=== PATIENT | female | born 1970 | race African-American/Black ===

== ENCOUNTER 2024-07-10 13:45 | Emergency (ER) | payer MEDICAID ==
[~2024-07-10] VITALS: Ht 160 cm; Wt 78.5 kg
[2024-07-10 14:52] VITALS: BP 187/85; RESP 16; TEMP 98.8; O2SAT 97
[2024-07-10 14:56] VITALS: PULSE 101; O2SAT 98
== END 2024-07-10 17:41 | disposition left against medical advice (07) ==
LOC: ER 13:45
DX: R07.9 Chest pain, unspecified (principal); Z53.21 Procedure and treatment not carried out due to patient leaving prior to being seen by health care provider